=== PATIENT | male | born 1950 | race Caucasian/White ===

== ENCOUNTER → 2018-09-23 | Outpatient (CLI) | payer OTHER ==
[~2018-09-23] MED LIST: IOPAMIDOL (ISOVUE 370) 100 ML BTL IV ONE
== END ==
LOC: FIMAGING 14:31
PROVIDERS: ATTEND Internal Medicine Cardiovascular Disease
DX: R91.8 Other nonspecific abnormal finding of lung field (principal); I48.91 Unspecified atrial fibrillation
CPT/HCPCS: 82565-PO; Q9967

== ENCOUNTER 2018-09-30 06:39 | Observation (INO) | payer OTHER ==
[2018-09-30] MEDS ORDERED: NS 1,000 ML IV ONE (06:40)
[2018-09-30 07:18] LABS: PLATELET COUNT 200 10^3/uL (150-400)
[2018-09-30 07:25] LABS: INR 0.98 (0.83-1.16); PROTIME(PATIENT) 13.2 SEC (12.0-15.0)
[2018-09-30] MEDS ORDERED: LIDOCAINE 1% 300 MG/30 ML SDV ONE (08:12)
[2018-09-30] MEDS ORDERED: HEPARIN/DEXTROSE 25,000 UNIT/500 ML BAG ONE (08:12)
[2018-09-30] MEDS ORDERED: HEPARIN 10,000 UNIT/10 ML MDV (1,000 UNIT/ML) ONE (08:13)
[2018-09-30] MEDS ORDERED: BUPIVACAINE 0.75% 10 ML SDV ONE (08:14)
[2018-09-30] MEDS ORDERED: IOPAMIDOL (ISOVUE-300) 100 ML BTL ONE (08:14)
--- NOTE | 2018-09-30 08:23 | PDANEPAE ---
ANE History of Present Illness paroxysmal a-fib, s/f ablation with cryo balloon ANE Past Medical History - Cardiovascular History Hx Chest Pain: No Hx Coronary Artery / Peripheral Vascular Disease: Yes Cardiovascular History Comment: CABG in 2004 - Pulmonary History Hx Sleep Apnea: Yes ANE Review of Systems Review of Systems: - Exercise capacity Exercise capacity: >=4 METS ANE Patient History - Allergies Allergies/Adverse Reactions: No Known Allergies Allergy (Verified 09/24/18 13:24) - Home Medications Home medications: home medication list seen and reviewed Home Medications: Apixaban [Eliquis] 5 mg PO BID 09/23/18 [Last Taken Unknown] Atorvastatin Calcium [Lipitor 40 mg (*)] 40 mg PO HS 09/23/18 [Last Taken Unknown] Nitroglycerin [Nitrostat 0.4 mg (*)] 0.4 mg SL Q5M PRN 09/23/18 [Last Taken Unknown] Sotalol HCl [Sotalol] 120 mg PO BID 09/23/18 [Last Taken Unknown] Acetaminophen [Tylenol 325mg (*)] 325 mg PO DAILY PRN 09/24/18 [Last Taken Unknown] Multivitamins [Multivitamin (*)] 1 each PO DAILY 09/24/18 [Last Taken Unknown] Omeprazole 20 mg PO DAILY 09/24/18 [Last Taken Unknown] - NPO status NPO Status: no food or drink >8 hours - Anes Hx Anes Hx: no prior problems - Smoking Hx Smoking Status: Never smoked - Alcohol Use Alcohol Use: None - Family Anes Hx Family Anes Hx: none ANE Labs/Vital Signs - Labs Result Diagrams: 09/30/18 06:55 09/30/18 06:55 - Vital Signs Height: 177.8 cm Weight: 74.843 kg ANE Physical Exam - Airway Neck exam: FROM Mallampati Score: Class 2 Mouth exam: normal dental/mouth exam - Pulmonary Pulmonary: no respiratory distress - Cardiovascular Cardiovascular: regular rate and rhythym - ASA Status ASA Status: II ANE Anesthesia Plan Anesthesia Plan: general endotracheal anesthesia
--- NOTE | 2018-09-30 08:32 | PDGENHP ---
History & Physical Chief Complaint: symptomatic afib Relevant Physical Exam: s1s2 rrr cta ao3 Cardiorespiratory Assessment: for pvi
[2018-09-30] MEDS ORDERED: fentaNYL 100 MCG/2 ML INJ ONE (08:49)
[2018-09-30] MEDS ORDERED: PROPOFOL/EMULSION 500 MG/50 ML BOTTLE IV ONE ×2 (08:49→09:52)
[2018-09-30] MEDS ORDERED: ROCURONIUM 100 MG/10 ML VIAL ONE (08:58)
[2018-09-30] MEDS ORDERED: DEXAMETHASONE 4 MG/ML VIAL ONE ×2 (09:22)
[2018-09-30] MEDS ORDERED: PHENYLEPHRINE HCL 100 MCG/ML SYR ONE (09:42)
[2018-09-30] MEDS ORDERED: REMIFENTANIL HCL 1 MG VIAL ONE (09:52)
[2018-09-30] MEDS ORDERED: PROTAMINE SULFATE 50 MG/5 ML VIAL IVP ONE (10:21)
[2018-09-30] MEDS ORDERED: ACETAMINOPHEN 325 MG TAB PO PRN (10:48)
[2018-09-30] MEDS ORDERED: ONDANSETRON 4 MG/2 ML VIAL ONE (10:50)
[2018-09-30] MEDS ORDERED: SUGAMMADEX SODIUM 200 MG/2 ML VIAL IVP ONE (10:50)
--- NOTE | 2018-09-30 11:31 | EPPROC ---
Electrophysiology Procedure Note: ELECTROPHYSIOLOGIC STUDY AND BALLOON-CATHETER MEDIATED CRYOABLATION FOR PAROXYMAL ATRIAL FIBRILLATION Procedures performed: 51727-73 EP evaluation with RA/RV/LA pace/record, with arrhythmia induction 07529-78 EP evaluation with RA/RV pace record, insert/reposition catheter, with arrhythmia induction 25166 Atrial fibrillation ablation Intracardiac echocardiogram Transseptal puncture Fluoroscopy INDICATION: Paroxysmal atrial fibrillation Prior CABG PROCEDURE: The patient arrived in the Electrophysiology Laboratory in the fasting state. The right groin, left groin and right infraclavicular area were prepped and draped in the usual sterile fashion. Anesthesiologist administered general anesthesia Dr. Brant Ryan . All catheters were placed percutaneously using the Seldinger technique and advanced into position under fluoroscopic guidance. One #7 Dutch deflectable octapolar electrode catheter was placed in the His-bundle position via the left femoral vein (2mm spacing, IVC electrode for unipolar recordings). This catheter was placed in the coronary sinus after transseptal puncture and later placed in the SVC-R subclavian vein junction to pace the right phrenic nerve during right pulmonary vein ablation. One #8 Dutch AcuNaV ultrasound catheter was placed in the left femoral vein and advanced into the right atrium. Programmed stimulation was performed from the right atrium, left atrium (CS) and right ventricle. There was no evidence of AV accessory pathway. Intracardiac echo evaluation of the left atrium and pulmonary veins was performed. Baseline ACT was drawn and heparin bolus was administered and heparin drip was started prior to transseptal puncture. ACT was checked every 15 minutes and maintained in the range of 350-400 seconds. One 14Fr short sheath was placed in the right femoral vein. One 8Fr SL1 sheath was advanced into the right atrium via the 14Fr short sheath. Transseptal puncture was performed under intracardiac ultrasound, fluoroscopic and hemodynamic guidance placing the sheath into the left atrium. [place] RF needle ( C0 curve) was used. The mean left atrial pressure was 8 mmHg. 3D map of left atrial and pulmonary veins was performed using PentaRay catheter. The SL1 sheath was exchanged for a Wortaltronic Flexcath sheath using an Amplatz stiff guide wire. A 28 mm Cryoballoon catheter with a 20 mm Achieve catheter was placed via the sheath into the left atrium. Intracardiac ultrasound and PV angiograms were used to assist in placing the mapping catheter at the antrum of the pulmonary veins. All pulmonary veins were isolated successfully using cryoballoon ablation using freeze/thaw/freeze cycles at 2-3-minute intervals, with good [id number] of isolation. Coumadin ridge/Ligament of [place]o region was ablated. Pre and post pulmonary vein recordings were measured on the spiral Achieve catheter to ensure complete pulmonary vein isolation. During the right-sided ablation, phrenic nerve pacing was performed to assess the phrenic nerve strength ( manually and with ICE visualization of liver movement during phrenic capture) and the phrenic nerve was intact throughout the right-sided ablation and at the end of the procedure. An esophageal temperature probe (12 electrode, Circa) was placed by the anesthesiologist at the beginning of the procedure. Esophageal temperature was monitored continuously and cryoablation was interrupted if esophageal temperature was <15 C. Cryoapplications 7 total cryoablation time 1311s ICE imaging post ablation was consistent with pre ablation imaging with no changes noted, moreover there was no left atrial/left ventricular thrombus and no pericardial effusion. The catheters were withdrawn. Protamine was given. The sheaths were removed and subcutaneous pursestring suture and manual pressure was used for hemostasis. The patient was recovered from anesthesia. There were no complications. The patient was arousable and moving all four extremities at the end of the procedure. CONCLUSIONS: 1. Paroxysmal atrial fibrillation. 2. Successful pulmonary vein isolation procedure (left and right pulmonary vein antrum) using cryoballoon ablation. 3. No apparent complications. Patient Problems: Problems Problem Status Onset Atrial fibrillation Acute
[2018-09-30] MEDS ORDERED: KETOROLAC 15 MG/1 ML SDV IVP ONE (12:30)
[2018-09-30] MEDS ORDERED: MAG HYDROX/AL HYDROX/SIMETH 30 ML UDCUP PO ONE (12:30)
[2018-09-30] MEDS ORDERED: MEPERIDINE 25 MG/0.5 ML AMP IVP ONE (12:45)
[2018-09-30] MEDS: APIXABAN 5 MG TAB PO SCH ×2 (18:10→23:48)
[2018-09-30] MEDS ORDERED: ATORVASTATIN CALCIUM 40 MG TAB PO SCH (21:00)
[2018-09-30] MEDS: METOPROLOL TARTRATE 25 MG TAB PO SCH (21:30)
[2018-10-01] MEDS: PANTOPRAZOLE SODIUM 40 MG TAB PO SCH ×2 (03:33→08:58)
[2018-10-01 05:37] LABS: PLATELET COUNT 187 10^3/uL (150-400)
[2018-10-01 08:57] VITALS: BP 125/70
[2018-10-01] MEDS: METOPROLOL TARTRATE 25 MG TAB PO SCH (08:58)
[2018-10-01] MEDS ORDERED: APIXABAN 5 MG TAB PO SCH (09:00)
--- NOTE | 2018-10-01 09:15 | PDCARPN ---
Cardiology Progress Note Chief Complaint: Atrial fibrillation s/p successful ablation yesterday 09/30 Assessment/Plan: Assessment: 1. Atrial fibrillation status post successful ablation yesterday. [id number] score = 2. Patient's Eliquis was re-started yesterday 6 hours post-procedure. Purse string sutures removed this morning, groin sites are clean and dry without oozing, redness, or swelling. Pulses 2+ bilaterally. Post-procedure chest discomfort resolved with Toradol yesterday afternoon, no recurrence of chest pain or any other associated symptoms since that time. Echo this morning appears stable. 2. CAD s/p CAGB in 2004 Plan: 1. Patient is stable for discharge today 2. We will discontinue Sotalol at this time. If he experiences recurrence of a- fib lasting >7 days, we will consider re-starting sotalol at that time. 3. Continue Eliquis 5mg BID 4. Start Omeprazole or Prilosec 5. Groin precautions reviewed with patient 6. Follow-up visit scheduled in clinc 10/01/18 09:11 Objective: Vital Signs (8 Hrs) Temp Pulse Resp BP Pulse Ox 10/01/18 08:00 36.7 C 90 16 125/70 H 95 10/01/18 06:00 74 16 107/67 98 10/01/18 04:00 36.6 C 76 16 107/52 L 96 10/01/18 02:00 74 16 108/62 96 Intake/Output (24 Hrs) 09/30/18 10/01/18 10/02/18 05:59 05:59 05:59 Intake Total 500 Balance 500 Intake: Oral (ml) 500 Other: Weight 74.843 kg Intake Quantity Yes Sufficient Number of Voids Toilet 2 Result Diagrams: 10/01/18 05:15 10/01/18 05:15 Cardiac Labs: Cardiac Lab Results (72 Hrs) 10/01/18 05:15 Troponin I 8.470 H - Physical Exam Constitutional: WDWN Cardiovascular: regular rate and rhythm, no murmurs Peripheral Pulses: 2+: dorsalis-pedis (R), dorsalis-pedis (L) Respiratory: clear to auscultate bilat, no crackles, no wheezes Gastrointestinal: normoactive bowel sounds Neurologic: AAOx3 ICD10 Worksheet Patient Problems: Problems Problem Status Onset Atrial fibrillation Acute
--- NOTE | 2018-10-01 11:12 | GDS ---
ADMISSION DIAGNOSIS: Atrial fibrillation. DISCHARGE DIAGNOSIS: Atrial fibrillation status post successful atrial fibrillation ablation. HOSPITAL COURSE: Mr. Bolanos is well-known to Dr. Pacheco. He presented yesterday for an atrial fibrillation ablation He has a prior history of coronary artery bypass in 2004 with increasing frequency of paroxysmal atrial fibrillation since that time. He underwent successful AFib ablation yesterday with moderate postoperative chest discomfort that was relieved with IV Toradol. We have restarted his Eliquis 5 mg BID for anticoagulation, and he has been started on omeprazole for GI prophylaxis post-ablation. We have also discontinued his sotalol at this time. He denies any persistent chest discomfort this morning. No lightheadedness, dizziness, palpitations, syncope, or other concerning symptoms.Purse-string sutures removed from bilateral groin sites. Patient is stable for discharge. CONCLUSION: 1. Paroxysmal atrial fibrillation. 2. Successful pulmonary vein isolation procedure left and right pulmonary vein isolation using cryo balloon ablation. 3. No apparent complications. PHYSICAL EXAMINATION: GENERAL: Patient reports feeling quite well. He is ambulatory without issues this morning. VITAL SIGNS: Blood pressure 125/70, heart rate 84, oxygen 95% on room air. CARDIAC: Regular rate and rhythm. RESPIRATORY: Clear to auscultation. EXTREMITIES: Groin sites are clean and dry bilaterally. Purse string sutures removed. Mild tenderness to right groin site. No oozing, redness, swelling, or warmth. Pulses are 2+ bilaterally. DISCHARGE INSTRUCTIONS: 1. Continue Eliquis 5 mg BID. 2. Start omeprazole daily for GI prophylaxis 3. We have discontinued sotalol at this time. If Mr. Hall experiences recurrence of AFib lasting more than 7 days we will consider restarting sotalol at that time 4. Start Metoprolol succinate 25mg BID. 5. Groin precautions reviewed with patient in detail. 6. Follow up in clinic as scheduled /[id number]/MODL MTDD
--- NOTE | 2018-10-01 11:14 | ECHO ---
[email or web address] [address] [address] Main: [phone] Fax: Transthoracic Echocardiogram Name: JOSÉ MIGUEL MICHELE MR#: [id number] Study Date: 10/01/2018 Study Time: 08:27 AM Date of : 1950 Age: 67 year(s) Height: 177.8 cm (70 in.) Weight: 74.84 kg (165 lb.) BSA: 1.92 m2 Gender: Male Examination: Echo Indication: F/U Post EP Study Image Quality: Adequate Contrast: Requested by: Randy Allen BP: 75 mmHg/59 mmHg Heart Rate: Rhythm: Indication: F/U Post EP Study Procedure Staff Dough Mixing Machine Operator: Nely Swanson RDCS Reading Physician: Issa Foley MD Requesting Provider: Conclusions: Normal size left ventricle. No LV hypertrophy. Normal global systolic LV function. The ejection fraction is visually estimated to be 60 %. No regional wall motion abnormality. Normal diastolic LV function. Normal RV function. The left atrium is moderately dilated. The right atrium is mildly dilated. The IVC is normal sized. No pericardial effusion. No pleural effusion. Measurements: Chambers Valvular Assessment AV/MV Valvular Assessment TV/PV Normal Normal Normal Name Value Range Name Value Range Name Value Range Ao Anahi (2D): 3.0 cm (1.4 cm-2.6 AV Vmax: 1.14 m/s (1 m/s-1.7 TR Vmax: 2.52 mm/s ( - ) cm) m/s) TR PGmax: 25 mmHg ( - ) IVSd (2D): 1.0 cm (0.6 cm-1.1 AV maxP mmHg ( - ) syst. PAP: 30 mmHg ( - ) cm) AV meanP mmHg ( - ) PV Vmax: 1.11 m/s (0.6 m/s-0.9 LVDd (2D): 4.6 cm (4.2 cm-5.9 DIMITRIS (VTI): 2.9 cm ( - ) m/s) cm) MV E Vmax: 0.96 m/s ( - ) PV PGmax: 5 mmHg ( - ) LVDs (2D): 3.0 cm (2.1 cm-4 MV A Vmax: 0.54 m/s ( - ) cm) MV E/A: 1.78 ( - ) LVPWd (2D): 0.9 cm (0.6 cm-1 cm) MV meanP mmHg ( - ) LVOTd 2.0 cm 2.0 cm mm MV PHT: 0.063 s ( - ) LVEF (MOD4): 68 % (>=55 %) MVA (Vmax): 2.3 m/s ( - ) Visual EF: 60 % MVA (PHT): 3.5 s ( - ) Patient: JOSÉ MIGUEL MICHELE Study Date: 10/01/2018 Page 1 of 2 08:27 AM RVDd(2D): 3.5 cm (1.9 cm-3.8 cmmm) Continued Measurements: Chambers Valvular Assessment AV/MV Valvular Assessment TV/PV Name Value Name Value Name Value LADs: 4.3 cm MV DecTime: 197 m/s CVP (est.): 5 mmHg LADs Lon.2 cm MV E' Septal: 0.09 m/s LA Area: 26.6 cm2 MV E/E' Septal: 10.30 LA Volume: 85 ml MV E/E' Lateral: 7.90 LA Volume Index: 44.3 ml/m2 MV VTI: 24.70 cm RA Area: 19.0 cm2 Additional Vessels Name Value Ao Ascendin.4 cm Inferior Vena Cava: 2.0 cm Findings: Left Ventricle: Normal size left ventricle. No LV hypertrophy. Normal global systolic LV function. The ejection fraction is visually estimated to be 60 %. No regional wall motion abnormality. Normal diastolic LV function. Right Ventricle: Normal size right ventricle. Normal RV function. Left Atrium: The left atrium is moderately dilated. Right Atrium: The right atrium is mildly dilated. Mitral Valve: The mitral valve is normal in appearance and function. Mild mitral valve regurgitation is present. No mitral stenosis is present. Aortic Valve: The aortic valve is tri-leaflet. There is no significant aortic valve regurgitation. No aortic valve stenosis is present. Tricuspid Valve: The tricuspid valve is normal in appearance and function. Mild tricuspid regurgitation is present. The pulmonary artery pressure is normal. Right ventricular systolic pressure measures 30mmHg. Pulmonic Valve: The pulmonic valve is normal in appearance and function. Trivial pulmonic valve regurgitation. Aorta: The aorta is normal. Normal size aortic root measuring 3.0 cm. Normal size ascending aorta measuring 3.4 cm. IVC: The IVC is normal sized. Pericardium: No pericardial effusion. No pleural effusion. (No Signature Object) Patient: JOSÉ MIGUEL MICHELE Study Date: 10/01/2018 Page 2 of 2 08:27 AM [id number]
--- NOTE | 2018-10-01 22:03 | CPEKG ---
Test Reason : F/U Post EP Study Blood Pressure : / mmHG Vent. Rate : 080 BPM Atrial Rate : 080 BPM P-R Int : 167 ms QRS Dur : 077 ms QT Int : 427 ms P-R-T Axes : 017 083 060 degrees QTc Int : 493 ms Sinus rhythm Borderline right axis deviation Nonspecific T abnormalities, anterior leads Borderline prolonged QTc Confirmed by Vitaly Vigil ([id number]) on 10/01/2018 10:03:11 PM Referred By: Confirmed By:Vitaly Vigil
--- NOTE | 2018-10-01 22:04 | CPEKG ---
Test Reason : OPEN Blood Pressure : / mmHG Vent. Rate : 077 BPM Atrial Rate : 077 BPM P-R Int : 160 ms QRS Dur : 084 ms QT Int : 418 ms P-R-T Axes : -25 077 061 degrees QTc Int : 474 ms Sinus rhythm Borderline ST T abnormalities, anterior leads Confirmed by Vitaly Vigil ([id number]) on 10/01/2018 10:03:46 PM Referred By: Confirmed By:Vitaly Vigil
--- NOTE | 2018-10-01 22:54 | CPEKG ---
Test Reason : OPEN Blood Pressure : / mmHG Vent. Rate : 068 BPM Atrial Rate : 068 BPM P-R Int : 160 ms QRS Dur : 078 ms QT Int : 418 ms P-R-T Axes : 055 071 053 degrees QTc Int : 445 ms Sinus rhythm Atrial premature complex Abnormal ST T contour V1 and V2 Confirmed by Vitaly Vigil ([id number]) on 10/01/2018 10:53:24 PM Referred By: Confirmed By:Vitaly Vigil
--- NOTE | 2018-10-02 14:53 | POSTANESTH ---
Post Anesthetic Evaluation Cardiovascular Status: Normal, Stable Respiratory Status: Normal, Stable Level of Consciousness/Mental Status: Can Participate in Eval Pain Control: Adequate, Prn Tx Ordered Nausea/Vomiting Control: Adequate, Prn Tx Ordered Complications Possibly Related to Anesthesia: None Noted
--- NOTE | 2018-10-03 13:08 | ECHO ---
[email or web address] [place] [id number] Main: [phone] Fax: Transesophageal Echocardiography Name: JOSÉ MIGUEL MICHELE MR#: [id number] Study Date: 09/30/2018 Study Time: 09:06 AM Date of : 1950 Age: 67 year(s) Height: ( ) Weight: ( ) BSA: Gender: Male Examination: GRAYSON Indication: a fib, dizziness, and fatigue Image Quality: Adequate Contrast: Requested by: Antwan Pacheco Heart Rate: Rhythm: BP: / Procedure Staff Telephone Switchboard Operator: Nely Swanson [facility] Reading Physician: Antwan Pacheco MD Requesting Provider: GRAYSON Exam Details Measurements: Chambers Valvular Assessment AV/MV Valvular Assessment TV/PV Normal Normal Normal Name Value Range Name Value Range Name Value Range Additional Measurements: Findings: Left Ventricle: Normal size left ventricle. Normal global systolic LV function. Right Ventricle: Normal size right ventricle. Normal RV function. Left Atrium: An agitated saline study was performed and was negative for intracardiac shunting. Left Atrial Appendage: The left atrial appendage is unilobular. Good color flow doppler in the left atrial appendage. No thrombus in left appendage. Mitral Valve: The mitral valve is normal in appearance and function. Mild mitral valve regurgitation is present. No mitral stenosis is present. Aortic Valve: The aortic valve is tri-leaflet. There is no significant aortic valve regurgitation. No aortic valve stenosis is present. Patient: JOSÉ MIGUEL MICHELE Study Date: 09/30/2018 Page 1 of 2 09:06 AM Tricuspid Valve: The tricuspid valve is normal in appearance and function. Pulmonic Valve: The pulmonic valve is normal in appearance and function. Trivial pulmonic valve regurgitation. Aorta: Mild plaque. l1n (No Signature Object) Patient: JOSÉ MIGUEL MICHELE Study Date: 09/30/2018 Page 2 of 2 09:06 AM [id number]
== END 2018-10-01 10:35 | disposition home or self-care (01) ==
LOC: FCATH 06:39 → F2N 10:44
PROVIDERS: ADMIT Internal Medicine Cardiovascular Disease; ATTEND Internal Medicine Cardiovascular Disease
DX: I48.91 Unspecified atrial fibrillation (principal)
CPT/HCPCS: 93005; 93306; 93312; 93613; 93656; 93662; C1893; G0378; C1730; C1731; C1732; C1733; C1759; C1766; J1100; J1644; J1885; J2175; J2370; J2405; J2704; J2720; J3010; Q9967